=== PATIENT | female | born 1960 | race Caucasian/White ===

== ENCOUNTER 2016-10-07 14:40 | Inpatient (IN) | payer OTHER ==
--- NOTE | ~2016-10-07 | HP ---
History And Physical [address] [id number] [facility] [place]. [address] NAME: BISI OBRIEN : 56 STATUS : ADM Lenny PAT#: [id number] AGE: 56 ADM/REG DATE : 10/07/16 MR#: [id number] REPORT SERV DATE: 10/07/16 DICTATED BY: RACHAEL EDMONDSON DATE: 10/07/16 REPORT STATUS : Draft TRANSCRIBED BY: MODLavon DATE: 10/07/16 DATE OF ADMISSION: 10/07/2016 POINT OF ENTRY: [facility] Emergency Department. PRIMARY CARE PHYSICIAN: Dr. Calle. PRIMARY ONCOLOGIST: Addison Bennett M.D. PRIMARY RADIATION ONCOLOGIST: Dr. Powers. CHIEF COMPLAINT: Syncope and weakness. 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 She presents to the emergency department today with reports of weakness as well as syncope. The patient states that she has been having trouble with weakness, dehydration, as well as stomatitis and mouth sores, therefore Dr. Bennett held her chemo infusion on Saturday of this last week. She had actually required IV fluid hydration through [facility] on Saturday, Saturday, as well as Saturday of this week for continued troubles with dehydration, borderline low blood pressures. The patient continued to receive radiation therapy to the lower abdominal region. The patient states that for about a week now she has been feeling very weak, fatigued, and tired. She has been having troubles with stomatitis and mouth sores, however, has been prescribed Magic mouthwash recently and seems to have some improving oral intake. Today, she was feeling very hot and diaphoretic and uncomfortable. She asked her sister to help her take a bath. She was sitting on the toilet while her sister was preparing the bath and she suffered a syncopal episode while sitting on the toilet. She denied any preceding chest pain, palpitations, shortness of breath, nausea, vomiting, vision changes, or headache. Sister states that she was unconscious for just a few seconds and then awoke. Initial evaluation in the emergency department, her blood pressure initially of 97/79, now improved to 103/70 with some IV fluids. Labs concerning for some dehydration as well as transaminitis. EKG and cardiac enzymes are unremarkable. The patient was subsequently admitted to the Hospitalist Service for further evaluation and management. She denies any recent fevers, night sweats, chills, chest pain, palpitations, shortness of breath, abdominal pain, nausea, or vomiting. Does report some very high ostomy output. This has been going on now for a few weeks. Denies any dysuria, melena, hematochezia, hemoptysis, or hematemesis. Does report some cough and sputum production. PAST MEDICAL HISTORY: 1. Stage IIIC adenocarcinoma of the colon status post sigmoid colectomy with diverting History And Physical [address] [address] NAME: BISI OBRIEN : 56 STATUS : ADM Lenny PAT#: [id number] AGE: 56 ADM/REG DATE : 10/07/16 MR#: [id number] REPORT SERV DATE: 10/07/16 DICTATED BY: RACHAEL EDMONDSON DATE: 10/07/16 REPORT STATUS : Draft TRANSCRIBED BY: HUGO DATE: 10/07/16 ileostomy. 2. Left renal cell carcinoma status post left nephrectomy. 3. Depression. 4. OCD. PAST SURGICAL HISTORY: 1. Left nephrectomy. 2. Sigmoid colectomy with diverting ileostomy. 3. Tubal ligation. 4. Cholecystectomy. 5. Port-A-Cath insertion. ALLERGIES: NO KNOWN DRUG ALLERGIES. HOME MEDICATIONS: 1. Biotin 5 mg daily. 2. Vitamin B12 2500 mcg daily. 3. Ferrous sulfate 325 mg daily. 4. Multivitamin one tablet daily. 5. Sertraline 200 mg daily. 6. Magic mouthwash p.r.n. SOCIAL HISTORY: Denies any tobacco, alcohol, or illicits. FAMILY HISTORY: Mother with uterine cancer. LABS AND IMAGIN. White count 5.1, hemoglobin 13.6, hematocrit is 37.4, platelet 336, INR 1.1. 2. Sodium is 131, potassium is 3.6, chloride is 95, bicarb is 23, BUN 33, creatinine 1.65, glucose is 128, calcium is 10.7, magnesium 2.2, total protein is 8.2, albumin is 3.8, bilirubin is 0.8, ALT is 106, AST 61, alkaline phosphatase is 151. 3. Lactic acid 1.7. 4. Troponin less than 0.02. 5. EKG per review shows normal sinus rhythm. No evidence of any acute ischemia or infarction. PHYSICAL EXAMINATION: VITAL SIGNS: Temperature is 97.9 degrees Fahrenheit, pulse is 93, respirations 16, saturating 98% on room air. Blood pressure 97/75 and recheck blood pressure is now 103/70. Pulse of 79. GENERAL: The patient is awake, alert, in no acute distress. Resting comfortably in the bed. She is a well-developed, well-nourished, elderly female. HEENT: Atraumatic and normocephalic. Slightly dry mucous membranes. Pupils are equal, round, reactive to light and accommodation. Does have some evidence of some mild stomatitis, as well as some well-healing mouth sores primarily in the dottie border. CARDIAC: Regular rate and rhythm. No murmurs or gallops. LUNGS: Clear to auscultation bilaterally. No wheezes, rhonchi, or crackles. History And Physical [address] [address] NAME: BISI OBRIEN : 56 STATUS : ADM Lenny PAT#: [id number] AGE: 56 ADM/REG DATE : 10/07/16 MR#: [id number] REPORT SERV DATE: 10/07/16 DICTATED BY: RACHAEL EDMONDSON DATE: 10/07/16 REPORT STATUS : Draft TRANSCRIBED BY: HUGO DATE: 10/07/16 ABDOMEN: Soft, nontender, and nondistended with good bowel sounds. She has a diverting ileostomy in the right lower quadrant. EXTREMITIES: Lower extremities are warm and well perfused. No cyanosis, clubbing, or edema. SKIN: Warm and dry. PSYCHIATRIC: Affect appropriate. NEURO: Alert and oriented x3. Cranial nerves 2 through 12 grossly intact. Speech is normal. Gait is not assessed. ASSESSMENT AND PLAN: Ms Obrien is a 56-year-old female who suffered a syncopal episode at home in the setting of a week-long history of dehydration thought to be secondary to poor oral intake secondary stomatitis as well as high ostomy output. PROBLEM LIST: 1. Syncope. 2. Acute kidney injury and dehydration. 3. High ostomy output. 4. Stomatitis and mouth sores. 5. Transaminitis. 6. History of renal cell carcinoma and colon cancer. PLAN: 1. Syncope. This is likely secondary to dehydration and resulting orthostatic hypotension. Vasovagal syncope is also a possibility. Initial EKG, cardiac enzymes, and telemetry monitoring is unremarkable. Blood pressure was noted to be mildly low, is now improved with IV fluids. We will continue aggressive IV fluid hydration. Check orthostatic vital signs in the morning. 2. Acute kidney injury and dehydration. Provide aggressive IV fluid hydration. Holding nephrotoxic medications. Checking urine lytes. This appears to be all due to poor oral intake as well as high ostomy output. At this has been ongoing now for about a week ago leading to holding her chemotherapy. 3. Transaminitis, unclear etiology. Could be due to either radiation therapy or chemotherapy. We will try to obtain recent lab records from [facility] before we initiate any further imaging of the abdomen. 4. High ostomy output. We will check an ostomy output for infectious etiology but otherwise likely secondary to chemotherapy regimen. 5. History of colon cancer and renal cell carcinoma status post chemotherapy and radiation. We will courtesy consult Dr. Powers as she states that she has a radiation therapy appointment scheduled for 11 o'clock tomorrow. Also consult the patient's primary oncologist, Dr. Bennett, to try to obtain records. 6. DVT prophylaxis. Lovenox subcu. CODE STATUS: The patient wished to be full code. ROBERTO/HUGO History And Physical [address] [place]. [address] NAME: BISI OBRIEN : 56 STATUS : ADM Lenny PAT#: [id number] AGE: 56 ADM/REG DATE : 10/07/16 MR#: [id number] REPORT SERV DATE: 10/07/16 DICTATED BY: RACHAEL EDMONDSON DATE: 10/07/16 REPORT STATUS : Draft TRANSCRIBED BY: HUGO DATE: 10/07/16 Rachael Edmondson MD / [id number] CC: Erik Manuel MD
--- NOTE | ~2016-10-07 | DS ---
Discharge Summary [facility] [address] [place]. [address] NAME: BISI OBRIEN : 56 STATUS : DIS Lenny PAT#: [id number] AGE: 56 ADM/REG DATE : 10/07/16 MR#: [id number] REPORT SERV DATE: 10/11/16 DICTATED BY: JADON ROTH DATE: 10/10/16 REPORT STATUS : Draft TRANSCRIBED BY: MODLavon DATE: 10/10/16 ADMISSION DATE: 10/07/2016 DISCHARGE DATE: 10/10/2016 REASON FOR ADMISSION: Dehydration, syncope, acute kidney injury. HISTORY OF PRESENT ILLNESS: Please refer to Dr. Ernst's history and physical dated 10/07/2016 for complete details regarding the patient's admission. In brief, the patient was admitted to the Hospitalist Service for syncope, dehydration, and acute kidney injury. HOSPITAL COURSE: The patient had an uncomplicated hospital course. The patient has a known diagnosis of stage IIIC adenocarcinoma of the colon, status post sigmoid colectomy with a diverting colostomy with left renal cell carcinoma, status post left nephrectomy, presented with acute kidney injury, dehydration, and syncope secondary to orthostatic hypotension, secondary to dehydration. The patient was started on IV fluids, placed on telemetry. Her electrolytes were replaced. She did have some episodes of hypokalemia, however, her potassium at the time of discharge is normal without any potassium supplementation. She was started on Lomotil after her stool studies were negative. She has had slightly decreased output. Her acute kidney injury has resolved. She is scheduled for radiation therapy today. She will be discharged home after her radiation treatment to follow up with Dr. Cancino. DISCHARGE DIAGNOSES: Syncope secondary to dehydration resulting in orthostatic hypotension, now resolved; acute kidney injury secondary to dehydration, now resolved; high output ostomy; stage IIIC colon cancer and renal cell carcinoma, status post chemotherapy, radiation nephrectomy and colectomy with current treatment from Dr. Powers, Dr. Cancino, and Dr. Bennett. The patient will be discharged today in a stable condition to follow up Dr. Bennett. DISCHARGE MEDICATIONS: Include vitamin B12, ferrous sulfate, multivitamin, Lomotil p.r.n., Zoloft 200 mg daily, and biotin. PROCEDURES: Include consultation with [facility], CT scan of the abdomen and pelvis, and chest x-ray. DICTATED BY: MD SHASHI Arellano/HUGO Jadon Roth MD Discharge Summary [address] [address] NAME: BISI OBRIEN : 56 STATUS : DIS Lenny PAT#: [id number] AGE: 56 ADM/REG DATE : 10/07/16 MR#: [id number] REPORT SERV DATE: 10/11/16 DICTATED BY: JADON ROTH DATE: 10/10/16 REPORT STATUS : Draft TRANSCRIBED BY: HUGO DATE: 10/10/16 / [id number] CC: MD BERTA Arellano KRISTINA CARLTON Bertrand Marquess Anz III, M.D.
[~2016-10-07 14:40] MED LIST: HAIR; MULTIVITAMI1 PO; PCET PO; PR25 PO; SKIN; VIT; VITAMIN B-121000 MC1 SL; ZOL100 PO
[2016-10-07 15:46] LABS: BASOPHILS 0.4 %; BASOPHILS ABSOLUTE 0.02 10/3/uL (0.0-0.16); EOSINOPHILS ABSOLUTE 0.05 10/3/uL (0.0-0.53); ER CBC TAT 0 Hrs 12 Mins; HEMATOCRIT 37.4 % (36.0-48.0); HEMOGLOBIN 13.6 g/dL (12.0-16.0); IMMATURE GRANULOCYTES 0.2 %; IMMATURE GRANULOCYTES ABSOLUTE 0.01 10/3/uL (0.0-0.11); LYMPHOCYTES 7.3 %; LYMPHOCYTES ABSOLUTE 0.37 10/3/uL (0.67-4.30); MEAN PLATELET VOLUME 10.3 fL (9.2-13.0); MONOCYTES 17.7 %; NEUTROPHILS 73.4 %; NEUTROPHILS ABSOLUTE 3.74 10/3/uL (2.02-8.40); PLATELET COUNT 336 10/3/uL (150-400); RBC DISTRIBUTION WIDTH 16.4 % (12.0-16.0); RED CELL COUNT 3.97 10/6/uL (4.0-5.6); WHITE BLOOD CELLS 5.1 10/3/uL (4.5-10.5)
[2016-10-07 16:01] LABS: MANUAL DIFF NO %; MEAN CORPUS HGB CONC 36.4 g/dL (32.0-36.0); MEAN CORPUSCULAR HEMOGLOB 34.3 pg (26.0-34.0); MEAN CORPUSCULAR VOLUME 94.2 fL (80-100)
[2016-10-07 16:06] LABS: ALBUMIN 3.8 G/DL (3.5-5.0); CHLORIDE, SERUM 95 MMOL/L (96-112); CO2 (CARBON DIOXIDE) 23 MMOL/L (24-34); CPK 20 U/L (0-200); DIRECT BILIRUBIN 0.2 MG/DL (0.0-0.4); INDIRECT BILIRUBIN(NOT ORDER) 0.6 MG/DL (0.1-0.9); SGOT(AST) 61 U/L (5-40); SGPT(ALT) 106 U/L (5-65); SODIUM, SERUM 131 MMOL/L (135-148); TOTAL BILIRUBIN 0.8 MG/DL (0-1.2); TOTAL PROTEIN 8.2 G/DL (6.0-8.5); TROPONIN I <0.02 NG/ML (<0.05)
[2016-10-07 16:07] LABS: ALKALINE PHOSPHATASE 151 U/L (45-117); BUN (BLOOD UREA NITROGEN) 33 MG/DL (6-23); CALCIUM, SERUM 10.2 MG/DL (8.5-10.4); CREATININE 1.65 MG/DL (0.55-1.02); GFR AFRICAN AMERICAN 39 ML/MIN (>=60); GFR NON AFRICAN AMERICAN 34 ML/MIN (>=60); GLUCOSE, SERUM 128 MG/DL (60-99); LACTATE 1.7 MMOL/L (0.3-2.4); POTASSIUM, SERUM 3.6 MMOL/L (3.5-5.3)
[2016-10-07 16:08] LABS: CHEST PAIN PROFILE TAT 0 Hrs 32 Mins
[2016-10-07 16:09] LABS: INTERNATIONAL NORMAL RATI 1.1 UNITS (-); PARTIAL THROMBO TIME 24.8 SEC (22.5-37.2); PROTIME (NOT ORD) 14.1 SEC (12.0-14.5)
[2016-10-07] MEDS ORDERED: ZOL100 PO (16:21)
[2016-10-07] MEDS ORDERED: MULTIVITAMI1 PO (16:21)
[2016-10-07] MEDS ORDERED: VITAMIN B-122500 MCG SL (16:21)
[2016-10-07] MEDS ORDERED: BIOTIN5 MG PO (16:22)
[2016-10-07] MEDS ORDERED: FERROUS SULF325 M1 PO (16:22)
[2016-10-07 19:12] LABS: ASCORBIC ACID (UR NOT ORDER) 40 (NEG); BILIRUBIN, URINE NEGATIVE (NEG); KETONE, URINE 20 MG/DL (NEG); LEUKOCYTE ESTERASE(NOT OR TRACE (NEG); NITRITE (URINE) NEG (NEG); WBC (NOT ORDERED) (RFLEX) 9 (0-5)
[2016-10-07 19:14] LABS: ER URINALYSIS TAT 0 Hrs 33 Mins
[2016-10-08 07:32] LABS: HEMATOCRIT 30.5 % (36.0-48.0); HEMOGLOBIN 11.1 g/dL (12.0-16.0); MANUAL DIFF YES %; MEAN CORPUS HGB CONC 36.4 g/dL (32.0-36.0); MEAN CORPUSCULAR HEMOGLOB 34.6 pg (26.0-34.0); MEAN PLATELET VOLUME 9.1 fL (9.2-13.0); PLATELET COUNT 215 10/3/uL (150-400); RBC DISTRIBUTION WIDTH 16.2 % (12.0-16.0); RED CELL COUNT 3.21 10/6/uL (4.0-5.6); WHITE BLOOD CELLS 3.4 10/3/uL (4.5-10.5)
[2016-10-08 07:43] LABS: BUN (BLOOD UREA NITROGEN) 25 MG/DL (6-23); CALCIUM, SERUM 8.7 MG/DL (8.5-10.4); CHLORIDE, SERUM 102 MMOL/L (96-112); CO2 (CARBON DIOXIDE) 25 MMOL/L (24-34); CREATININE 1.21 MG/DL (0.55-1.02); GFR AFRICAN AMERICAN 57 ML/MIN (>=60); GFR NON AFRICAN AMERICAN 49 ML/MIN (>=60); GLUCOSE, SERUM 133 MG/DL (60-99); POTASSIUM, SERUM 3.3 MMOL/L (3.5-5.3); SODIUM, SERUM 135 MMOL/L (135-148)
[2016-10-08 07:53] LABS: BAND NEUTROPHILS 10 %; EOSINOPHILS 5 %; EOSINOPHILS ABSOLUTE (CALC) 0.17 10/3/uL (0.0-0.53); LYMPHOCYTES 11 %; LYMPHOCYTES ABSOLUTE (CALC) 0.37 10/3/uL (0.67-4.30); MONOCYTES 22 %; MONOCYTES ABSOLUTE (CALC) 0.75 10/3/uL (0.21-1.20); NEUTROPHILS ABSOLUTE (CALC) 2.11 10/3/uL (2.02-8.40); PLATELET ESTIMATE ADQ (ADEQUATE); SEGMENTED NEUTROPHIL (0) 52 %; TOTAL NUCLEATED CELLS 100
[2016-10-08 07:54] LABS: MACROCYTES 1+ (5-10/OIF) (0-5/OIF); POLYCHROMASIA 1+ (2-5/OIF) (0-1/OIF)
[2016-10-09 06:39] LABS: HEMATOCRIT 30.7 % (36.0-48.0); HEMOGLOBIN 11.1 g/dL (12.0-16.0); MEAN CORPUS HGB CONC 36.2 g/dL (32.0-36.0); MEAN CORPUSCULAR HEMOGLOB 34.4 pg (26.0-34.0); MEAN PLATELET VOLUME 9.8 fL (9.2-13.0); PLATELET COUNT 217 10/3/uL (150-400); RBC DISTRIBUTION WIDTH 16.2 % (12.0-16.0); RED CELL COUNT 3.23 10/6/uL (4.0-5.6)
[2016-10-09 06:40] LABS: MANUAL DIFF YES %
[2016-10-09 06:56] LABS: A/G RATIO 0.9 (0.7-1.9); ALBUMIN 3.3 G/DL (3.5-5.0); CALCIUM, SERUM 9.3 MG/DL (8.5-10.4); CHLORIDE, SERUM 100 MMOL/L (96-112); CO2 (CARBON DIOXIDE) 24 MMOL/L (24-34); GFR AFRICAN AMERICAN 72 ML/MIN (>=60); GFR NON AFRICAN AMERICAN 62 ML/MIN (>=60); GLOBULIN 3.6 G/DL (2.5-4.1); GLUCOSE, SERUM 118 MG/DL (60-99); PHOSPHORUS, SERUM 2.5 MG/DL (2.5-4.5); POTASSIUM, SERUM 3.2 MMOL/L (3.5-5.3); SGOT(AST) 27 U/L (5-40); SGPT(ALT) 60 U/L (5-65); SODIUM, SERUM 133 MMOL/L (135-148); TOTAL BILIRUBIN 0.4 MG/DL (0-1.2); TOTAL PROTEIN 6.9 G/DL (6.0-8.5)
[2016-10-09 06:57] LABS: ALKALINE PHOSPHATASE 107 U/L (45-117); BUN (BLOOD UREA NITROGEN) 16 MG/DL (6-23)
[2016-10-09 07:16] LABS: BAND NEUTROPHILS 28 %; EOSINOPHILS 2 %; EOSINOPHILS ABSOLUTE (CALC) 0.08 10/3/uL (0.0-0.53); LYMPHOCYTES 15 %; MONOCYTES 13 %; MONOCYTES ABSOLUTE (CALC) 0.52 10/3/uL (0.21-1.20); PLATELET ESTIMATE ADQ (ADEQUATE); SEGMENTED NEUTROPHIL (0) 42 %; TOTAL NUCLEATED CELLS 100
[2016-10-09 07:17] LABS: RBC MORPHOLOGY NORM (NORMAL)
[2016-10-10 05:50] LABS: HEMATOCRIT 30.2 % (36.0-48.0); HEMOGLOBIN 10.8 g/dL (12.0-16.0); MEAN CORPUS HGB CONC 35.8 g/dL (32.0-36.0); MEAN CORPUSCULAR HEMOGLOB 34.2 pg (26.0-34.0); MEAN CORPUSCULAR VOLUME 95.6 fL (80-100); MEAN PLATELET VOLUME 9.5 fL (9.2-13.0); PLATELET COUNT 205 10/3/uL (150-400); RBC DISTRIBUTION WIDTH 16.2 % (12.0-16.0); RED CELL COUNT 3.16 10/6/uL (4.0-5.6)
[2016-10-10 05:51] LABS: MANUAL DIFF YES %
[2016-10-10 06:09] LABS: A/G RATIO 0.8 (0.7-1.9); ALKALINE PHOSPHATASE 113 U/L (45-117); BUN (BLOOD UREA NITROGEN) 14 MG/DL (6-23); CALCIUM, SERUM 9.1 MG/DL (8.5-10.4); CHLORIDE, SERUM 105 MMOL/L (96-112); CO2 (CARBON DIOXIDE) 21 MMOL/L (24-34); CREATININE 0.93 MG/DL (0.55-1.02); GFR AFRICAN AMERICAN 79 ML/MIN (>=60); GFR NON AFRICAN AMERICAN 68 ML/MIN (>=60); GLOBULIN 3.7 G/DL (2.5-4.1); GLUCOSE, SERUM 108 MG/DL (60-99); PHOSPHORUS, SERUM 2.4 MG/DL (2.5-4.5); SGOT(AST) 22 U/L (5-40); SGPT(ALT) 46 U/L (5-65); SODIUM, SERUM 134 MMOL/L (135-148); TOTAL BILIRUBIN 0.3 MG/DL (0-1.2); TOTAL PROTEIN 6.7 G/DL (6.0-8.5)
[2016-10-10 06:10] LABS: POTASSIUM, SERUM 3.9 MMOL/L (3.5-5.3)
[2016-10-10 06:41] LABS: BAND NEUTROPHILS 19 %; EOSINOPHILS 7 %; EOSINOPHILS ABSOLUTE (CALC) 0.28 10/3/uL (0.0-0.53); IMMATURE GRANS ABSOLUTE (CALC) 0.08 10/3/uL (0.0-0.11); LYMPHOCYTES 8 %; LYMPHOCYTES ABSOLUTE (CALC) 0.32 10/3/uL (0.67-4.30); METAMYELOCYTES 2 %; MONOCYTES 8 %; MONOCYTES ABSOLUTE (CALC) 0.32 10/3/uL (0.21-1.20); SEGMENTED NEUTROPHIL (0) 56 %; TOTAL NUCLEATED CELLS 100
[2016-10-10 06:42] LABS: PLATELET ESTIMATE ADQ (ADEQUATE); RBC MORPHOLOGY NORM (NORMAL)
[2016-10-10] MEDS ORDERED: LOM PO (08:50)
== END 2016-10-10 13:35 | disposition home or self-care (01) | DRG 641 ==
LOC: ER 14:40 → CDU1 17:15 → CDU2 17:27 → 1SO 19:12
PROVIDERS: Emergency Medicine; Internal Medicine
DX: E86.0 Dehydration (principal); N17.9 Acute kidney failure, unspecified; C18.9 Malignant neoplasm of colon, unspecified; F32.9 Major depressive disorder, single episode, unspecified; I95.1 Orthostatic hypotension; K12.1 Other forms of stomatitis; F42.9 Obsessive-compulsive disorder, unspecified; E87.6 Hypokalemia; Z79.899 Other long term (current) drug therapy; Z93.2 Ileostomy status; Z90.49 Acquired absence of other specified parts of digestive tract; Z85.528 Personal history of other malignant neoplasm of kidney; Z90.5 Acquired absence of kidney
CPT/HCPCS: 71010; 74177; 77300; 77386; 80048; 80053; 80076; 81001; 82550; 83605; 83735; 84100; 84132; 84484; 85025; 85610; 85730; 87045; 87046; 87046-59; 87328; 87329; 87493; 87493-59; 87899; 87899-59; 93005; 99285; A9270-GY; Q9967